=== PATIENT | male | born 1965 | race Caucasian/White ===

== ENCOUNTER 2025-01-05 16:47 | Inpatient (IN) | payer OTHER ==
--- NOTE | 2025-01-05 17:22 | ED ---
Neuro HPI - General Chief Complaint: Neuro Symptoms/Deficit Stated Complaint: Lightheaded/Fever Time Seen by Provider: 01/05/25 17:21 Source: patient, RN notes reviewed, old records reviewed Mode of arrival: ambulatory Limitations: no limitations - History of Present Illness Is the patient presenting with stroke symptoms?: Yes -: week(s) Initial Comments: This is a 59-year-old male to the ER for evaluation. Patient believes he is having a stroke, slurred speech difficulty with speaking and some confusion as well as left-sided weakness but overall weakness both sides of his body. Patient states he has been unable to see a PCP for some time recently was taken off recently stopped taking his blood pressure medication and noticed neurological symptoms about a week ago Location: speech, dysarthria, left arm, left leg, ataxia Place: home Severity: mild Quality: weak, numb, tingling Improves With: none Worsens With: none Context: sudden onset Associated Symptoms: confusion, malaise, weakness Treatments Prior to Arrival: none - Related Data Home Medications: Previous Rx's Medication Instructions Recorded Aspirin 81 mg PO DAILY 30 Days #30 tab 01/07/25 Atorvastatin [Lipitor] 40 mg PO HS 30 Days #30 tab 01/07/25 Clopidogrel [Plavix] 75 mg PO DAILY 90 Days #90 tab 01/07/25 Losartan [Cozaar] 50 mg PO DAILY 30 Days #30 tab 01/07/25 amLODIPine [Norvasc] 10 mg PO DAILY 30 Days #30 tab 01/07/25 atenoloL [Tenormin] 50 mg PO DAILY 30 Days #30 tab 01/07/25 hydrALAZINE HCL [Apresoline] 20 mg PO BID 30 Days #60 tab 01/07/25 hydroCHLOROthiazide [Hydrodiuril] 25 mg PO DAILY 30 Days #30 tab 01/07/25 Allergies/Adverse Reactions: Allergies Allergy/AdvReac Type Severity Reaction Status Date / Time No Known Allergies Allergy Verified 01/05/25 18:00 Review of Systems ROS Statement: Those systems with pertinent positive or pertinent negative responses have been documented in the HPI. ROS Other: All systems not noted in ROS Statement are negative. General Exam Limitations: no limitations General appearance: alert, in no apparent distress Head exam: Present: atraumatic, normocephalic, normal inspection Eye exam: Present: normal appearance, PERRL, EOMI. Absent: scleral icterus, conjunctival injection, periorbital swelling ENT exam: Present: normal exam, mucous membranes moist Neck exam: Present: normal inspection. Absent: tenderness, meningismus, lymphadenopathy Respiratory exam: Present: normal lung sounds bilaterally. Absent: respiratory distress, wheezes, rales, rhonchi, stridor Cardiovascular Exam: Present: regular rate, normal rhythm, normal heart sounds. Absent: systolic murmur, diastolic murmur, rubs, gallop, clicks GI/Abdominal exam: Present: soft, normal bowel sounds. Absent: distended, tenderness, guarding, rebound, rigid Extremities exam: Present: normal inspection, full ROM, normal capillary refill. Absent: tenderness, pedal edema, joint swelling, calf tenderness Back exam: Present: normal inspection Neurological exam: Present: alert, oriented X3, CN II-XII intact Psychiatric exam: Present: normal affect, normal mood Skin exam: Present: warm, dry, intact, normal color. Absent: rash Stroke MDM - Lab Data Result diagrams: 01/07/25 06:09 01/07/25 06:09 Lab Results 01/05/25 01/05/25 01/05/25 Range/Units 17:39 17:39 17:39 WBC 12.71 H (4.50-10.00) 10*3/uL RBC 6.26 H (4.40-5.60) 10*6/uL Hgb 18.3 H (13.0-17.0) g/dL Hct 52.2 H (39.6-50.0) % MCV 83.4 (80.0-97.0) fL MCH 29.2 (27.0-32.0) pg MCHC 35.1 (32.0-37.0) g/dL Plt Count 263 (140-440) 10*3/uL MPV 10.7 (9.5-12.2) fL Immature Gran % (Auto) 0.2 % Neutrophils % 70.7 % Lymphocytes % 20.1 % Monocytes % 7.1 % Eosinophils % 1.2 % Basophils % 0.7 % Immature Gran # 0.03 (0.00-0.04) 10*3/uL Neutrophils # 8.98 H (1.80-7.70) 10*3/uL Lymphocytes # 2.56 (0.90-5.00) 10*3/uL Monocytes # 0.90 (0.20-1.00) 10*3/uL Eosinophils # 0.15 (0.04-0.35) 10*3/uL Basophils # 0.09 (0.00-0.10) 10*3/uL PT 10.7 (10.0-12.5) sec INR 1.0 (<1.2) APTT 22.9 (22.0-30.0) sec Sodium (137-145) mmol/L Potassium (3.5-5.1) mmol/L Chloride (98-107) mmol/L Carbon Dioxide (22-30) mmol/L Anion Gap mmol/L BUN (9-20) mg/dL Creatinine (0.66-1.25) mg/dL Est GFR (CKD-EPI)AfAm (>60 ml/min/1.73 sqM) Est GFR (CKD-EPI)NonAf (>60 ml/min/1.73 sqM) Glucose (74-99) mg/dL Estimated Ave Glu mg/dL mg/dL Hemoglobin A1c (<=6.0) % Calcium (8.4-10.2) mg/dL Phosphorus (2.5-4.5) mg/dL Magnesium (1.6-2.3) mg/dL Total Bilirubin (0.2-1.3) mg/dL AST (17-59) U/L ALT (4-49) U/L Alkaline Phosphatase (38-126) U/L Creatine Kinase (55-170) U/L Troponin I <0.012 (0.000-0.034) ng/mL Total Protein (6.3-8.2) g/dL Albumin (3.5-5.0) g/dL Triglycerides (0.00-149.00) mg/dL Cholesterol (0.00-200.00) mg/dL LDL Cholesterol, Calc (0.0-131.0) mg/dL VLDL Cholesterol, Calc (5.00-40.00) mg/dL HDL Cholesterol (40.00-60.00) mg/dL Cholesterol/HDL Ratio Ratio 01/05/25 01/05/25 01/05/25 Range/Units 17:39 18:59 18:59 WBC (4.50-10.00) 10*3/uL RBC (4.40-5.60) 10*6/uL Hgb (13.0-17.0) g/dL Hct (39.6-50.0) % MCV (80.0-97.0) fL MCH (27.0-32.0) pg MCHC (32.0-37.0) g/dL Plt Count (140-440) 10*3/uL MPV (9.5-12.2) fL Immature Gran % (Auto) % Neutrophils % % Lymphocytes % % Monocytes % % Eosinophils % % Basophils % % Immature Gran # (0.00-0.04) 10*3/uL Neutrophils # (1.80-7.70) 10*3/uL Lymphocytes # (0.90-5.00) 10*3/uL Monocytes # (0.20-1.00) 10*3/uL Eosinophils # (0.04-0.35) 10*3/uL Basophils # (0.00-0.10) 10*3/uL PT (10.0-12.5) sec INR (<1.2) APTT (22.0-30.0) sec Sodium 137 (137-145) mmol/L Potassium 3.8 (3.5-5.1) mmol/L Chloride 105 (98-107) mmol/L Carbon Dioxide 20 L (22-30) mmol/L Anion Gap 12 mmol/L BUN 26 H (9-20) mg/dL Creatinine 1.10 (0.66-1.25) mg/dL Est GFR (CKD-EPI)AfAm 85 (>60 ml/min/1.73 sqM) Est GFR (CKD-EPI)NonAf 74 (>60 ml/min/1.73 sqM) Glucose 88 (74-99) mg/dL Estimated Ave Glu mg/dL 120 mg/dL Hemoglobin A1c 5.8 (<=6.0) % Calcium 10.0 (8.4-10.2) mg/dL Phosphorus 3.8 (2.5-4.5) mg/dL Magnesium 1.6 (1.6-2.3) mg/dL Total Bilirubin 0.8 (0.2-1.3) mg/dL AST 24 (17-59) U/L ALT 31 (4-49) U/L Alkaline Phosphatase 61 (38-126) U/L Creatine Kinase 60 (55-170) U/L Troponin I (0.000-0.034) ng/mL Total Protein 6.6 (6.3-8.2) g/dL Albumin 4.1 (3.5-5.0) g/dL Triglycerides 121.00 (0.00-149.00) mg/dL Cholesterol 125.00 (0.00-200.00) mg/dL LDL Cholesterol, Calc 62.0 (0.0-131.0) mg/dL VLDL Cholesterol, Calc 24.20 (5.00-40.00) mg/dL HDL Cholesterol 38.80 L (40.00-60.00) mg/dL Cholesterol/HDL Ratio 3.22 Ratio - NIH Stroke Scale 1a. Level of Consciousness: (0) alert 1b. LOC Questions: (0) answers correctly 1c. LOC Commands: (0) performs tasks correctly 2. Best Gaze: (0) normal 3. Visual: (0) no visual loss 5a. Motor Arm Left: (1) drift 5b. Motor Arm Right: (0) no drift 6a. Motor Leg Left: (1) drift 6b. Motor Leg Right: (0) no drift 7. Limb Ataxia: (0) absent 8. Sensory: (0) normal 9. Best Language: (1) mild/moderate aphasia 10. Dysarthria: (1) mild/moderate dysarthria 11. Extinction/Inattention: (0) no abnormality - Thrombolytic Inclusion/Exclusion Thrombolytic Exclusion Criteria: Symptom Onset > 4.5 Hours - Medical Decision Making 59 male with strokelike symptoms going on for about a week. He has been off his blood pressure medications at home secondary to change in primary care. Patient will be admitted for acute CVA neurology evaluation blood pressure control - Radiology Data Radiology results: report reviewed (CT brain CT angio positive acute CVA), image reviewed - EKG Data -: EKG Interpreted by Me Past Medical History Past Medical History: Hypertension History of Any Multi-Drug Resistant Organisms: None Reported Past Surgical History: No Surgical Hx Reported Past Psychological History: No Psychological Hx Reported Smoking Status: Current every day smoker Past Alcohol Use History: None Reported Past Drug Use History: Marijuana Course Vital Signs 01/05/25 01/05/25 01/05/25 16:57 18:00 19:00 Temperature 98.0 F Pulse Rate 58 L 60 89 Respiratory 18 18 18 Rate Blood Pressure 180/118 148/92 146/87 O2 Sat by Pulse 97 97 98 Oximetry 01/05/25 20:13 Temperature Pulse Rate 60 Respiratory 18 Rate Blood Pressure 150/88 O2 Sat by Pulse 98 Oximetry - Reevaluation(s) Reevaluation #1: 01/05/25 19:41 Medical records reviewed Reevaluation #2: 01/05/25 19:41 No change in symptoms here in the ER 01/05/25 19:41 Blood pressure is improved Reevaluation #3: 01/05/25 19:41 Patient informed of results and questions answered Reevaluation #4: Was pt. sent in by a medical professional or institution (, RORY, TRANSPORTATION ENGINEER, urgent care, hospital, or long term...) When possible be specific @ -no Did you speak to anyone other than the patient for history (EMS, parent, family, police, friend...)? What history was obtained from this source @ -no Did you review nursing and triage notes (agree or disagree)? Why? @ -agree Are old charts reviewed (outside hosp., previous admission, EMS record, old EKG, old radiological studies, urgent care reports/EKG's, long term records)? Report findings @ -yes Differential Diagnosis (chest pain, altered mental status, abdominal pain women, abdominal pain men, vaginal bleeding, weakness, fever, dyspnea, syncope, headache, dizziness, GI bleed, back pain, seizure, CVA, palpatations, mental hea lth, musculoskeletal)? @ -prior EKG interpreted by me (3pts min.). @ -yes X-rays interpreted by me (1pt min.). @ -no CT interpreted by me (1pt min.). @ -yes negative for acute disease U/S interpreted by me (1pt. min.). @ -no What testing was considered but not performed or refused? (CT, X-rays, U/S, labs)? Why? @ -none What meds were considered but not given or refused? Why? @ -none Did you discuss the management of the patient with other professionals (professionals i.e. RORY Esquivel, TRANSPORTATION ENGINEER, lab, RT, psych nurse, social media intern, legal aide, teacher, contracts officer, sample case porter)? Give summary @ -no Was smoking cessation discussed for >3mins.? @ -no Was critical care preformed (if so, how long)? @ -yes31 Were there social determinants of health that impacted care today? How? (Homelessness, low income, unemployed, alcoholism, drug addiction, transportation, low edu. Level, literacy, decrease access to med. care, halfway, rehab)? @ -none Was there de-escalation of care discussed even if they declined (Discuss DNR or withdrawal of care, Hospice)? DNR status @ -no What co-morbidities impacted this encounter? (DM, HTN, Smoking, COPD, CAD, Cancer, CVA, ARF, Chemo, Hep., AIDS, mental health diagnosis, sleep apnea, morbid obesity)? @ -none Was patient admitted / discharged? Hospital course, mention meds given and route, prescriptions, significant lab abnormalities, going to OR and other pertinent info. @ - 59 male with strokelike symptoms going on for about a week. He has been off his blood pressure medications at home secondary to change in primary care. Patient will be admitted for acute CVA neurology evaluation blood pressure control Admitted Undiagnosed new problem with uncertain prognosis? @ -no Drug Therapy requiring intensive monitoring for toxicity (Heparin, Nitro, In sulin, Cardizem)? @ -no Were any procedures done? @ -no Diagnosis/symptom? @ -CVA Acute, or Chronic, or Acute on Chronic? @ -Acute Uncomplicated (without systemic symptoms) or Complicated (systemic symptoms)? @ -Complicated Side effects of treatment? @ -no Exacerbation, Progression, or Severe Exacerbation? @ -exacerbation Poses a threat to life or bodily function? How? (Chest pain, [place], [place], pneumonia, PE, COPD, DKA, ARF, appy, cholecystitis, CVA, Diverticulitis, Homicidal, Suicidal, threat to staff... and all critical care pts) @ -y with acute CVA Reevaluation #5: Differential CVA Ischemic stroke, hemorrhagic stroke, brain tumor, atypical migraine, Wernicke's encephalopathy, seizure, multiple sclerosis, meningitis, encephalitis, hypoglycemia, Guillain-Whelan, electrolytes disturbance, myasthenia gravis.... This is not meant to be an all-inclusive list - Consultations Consultation #1: Spoke with sound who agrees to admit this patient Disposition Clinical Impression: Cerebrovascular accident (CVA), Hypertension Disposition: ADMITTED IP TO THIS HOSP Condition: Stable Is patient prescribed a controlled substance at d/c from ED?: No Time of Disposition: 19:30
[2025-01-05] MEDS: hydrALAZINE HCL 20 MG/ML 1 ML VIAL IVP STA (17:48)
[2025-01-05] MEDS: SODIUM CHLORIDE 0.9% 1,000 ML IV STA (17:50)
[2025-01-05 18:01] LABS: Basophils # (A) 0.09 10*3/uL (0.00-0.10); Basophils % (A) 0.7 %; Eosinophils # (A) 0.15 10*3/uL (0.04-0.35); Eosinophils % (A) 1.2 %; HCT 52.2 % (39.6-50.0); HGB 18.3 g/dL (13.0-17.0); Lymphocytes # (A) 2.56 10*3/uL (0.90-5.00); Lymphocytes % (A) 20.1 %; MCH 29.2 pg (27.0-32.0); MCHC 35.1 g/dL (32.0-37.0); MCV 83.4 fL (80.0-97.0); Monocytes # (A) 0.90 10*3/uL (0.20-1.00); Monocytes % (A) 7.1 %; Neutrophils # (A) 8.98 10*3/uL (1.80-7.70); Neutrophils % (A) 70.7 %; Platelet Count 263 10*3/uL (140-440); RBC 6.26 10*6/uL (4.40-5.60); RDW 12.9 % (11.5-14.5); WBC 12.71 10*3/uL (4.50-10.00)
[2025-01-05 18:09] LABS: INR 1.0 (<1.2); Partial Thromboplastin Time 22.9 sec (22.0-30.0); Prothrombin Time 10.7 sec (10.0-12.5)
[2025-01-05 19:23] LABS: ALT 31 U/L (4-49); AST 24 U/L (17-59); African American GFR (CKD) 85 (>60 ml/min/1.73 sqM); Albumin 4.1 g/dL (3.5-5.0); Alkaline Phosphatase 61 U/L (38-126); Anion Gap 12 mmol/L; Blood Urea Nitrogen 26 mg/dL (9-20); Calcium 10.0 mg/dL (8.4-10.2); Carbon Dioxide 20 mmol/L (22-30); Chloride 105 mmol/L (98-107); Creatine Kinase 60 U/L (55-170); Glucose 88 mg/dL (74-99); Magnesium 1.6 mg/dL (1.6-2.3); Non-African American GFR(CKD) 74 (>60 ml/min/1.73 sqM); Potassium 3.8 mmol/L (3.5-5.1); Sodium 137 mmol/L (137-145); Total Protein 6.6 g/dL (6.3-8.2)
--- NOTE | 2025-01-05 19:33 | CT ---
EXAMINATION TYPE: CT brain wo con CT DLP: 1159 mGycm, Automated exposure control for dose reduction was used. DATE OF EXAM: 01/05/2025 7:29 PM COMPARISON: None. CLINICAL INDICATION:Male, 59 years old with history of Neuro deficit, acute, stroke suspected, Pt c/o left sided weakness, dizziness, and slurred speech X1 week, high blood pressure today, isn't taking meds TECHNIQUE: Brain: Multiple axial CT images of the brain were obtained without IV contrast. . Coronal and sagitta l reformats reviewed. FINDINGS: Brain: Extra-axial spaces: No abnormal extra-axial fluid collections. Ventricular system: Within normal limits Cerebral parenchyma: No acute intraparenchymal hemorrhage or mass effect. The sorensen-white junction is well differentiated. Region of hypodensity within the right ortiz radiata. Cerebellum: Unremarkable. Mass effect: No evidence of midline shift. Intracranial vasculature: Atherosclerotic calcifications of the intracranial vessels. Soft tissues: Normal. Calvarium/osseous structures: No depressed skull fracture. Paranasal sinuses and mastoid air cells: Clear Visualized orbits: Orbital contents are intact. IMPRESSION: Subacute appearing right ortiz radiata ischemic injury. No acute intracranial hemorrhage. Findings communicated to Dr. Sundeep Hwang on 01/05/2025 7:[address] Fercho Corrales . [facility], , 01/05/2025 7:30 PM
--- NOTE | 2025-01-05 19:38 | CT ---
EXAMINATION TYPE: CT angio head neck CT DLP: 884 mGycm, Automated exposure control for dose reduction was used. DATE OF EXAM: 01/05/2025 7:30 PM COMPARISON: CT brain of the same date. CLINICAL INDICATION:Male, 59 years old with history of Neuro deficit, acute, stroke suspected; PHH, P t c/o left sided weakness, dizziness, and slurred speech X1 week, high blood pressure today, isn't ta anitha meds TECHNIQUE: Axially acquired helical CT angiogram of the head and neck was obtained with contrast util izing 75 cc of Isovue-370 administered intravenously. Axial images are supplemented with 3D reconstru ctions which were post-processed at an independent workstation. NASCET criteria used. MIP imaging performed on a separate workstation and submitted for review. FINDINGS: CTA HEAD: No evidence of acute intracranial hemorrhage, mass effect, or midline shift. The ventricles, sulci, a nd cisterns are unremarkable. The visualized portions of the internal carotid arteries, middle cerebral arteries, anterior cerebral arteries, and posterior cerebral arteries are patent. The basilar and vertebral arteries are patent. CTA NECK: Right Carotid System: The common carotid artery and external carotid artery are patent. The carotid bifurcation demonstrate s no evidence of hemodynamically significant stenosis. The remaining portions of the internal carotid artery demonstrate normal size without significant narrowing. Left Carotid System: The common carotid artery and external carotid artery are patent. The carotid bifurcation demonstrate s no evidence of hemodynamically significant stenosis. The remaining portions of the internal carotid artery demonstrate normal size without significant narrowing. Vertebral arteries are patent without evidence hemodynamically significant stenosis. There is a four-vessel aortic arch. The origins of the great vessels are patent. No evidence of hemod ynamically significant stenosis. IMPRESSION: 1. No evidence of dissection of the cervical internal carotid arteries or vertebral arteries or any e vidence of significant stenosis at the carotid bifurcations. 2. No evidence of high-grade stenosis or intracranial aneurysm. [facility], , 01/05/2025 7:36 PM
[2025-01-05] MEDS: ASPIRIN 325 MG TAB PO STA (19:53)
[2025-01-05] MEDS: SODIUM CHLORIDE 0.9% 1,000 ML IV SCH (19:55)
[2025-01-05] MEDS: ATORVASTATIN 80 MG TAB PO SCH (20:12)
--- NOTE | 2025-01-05 20:28 | P.HPIM ---
History of Present Illness H&P Date: 01/05/25 Chief Complaint: Neurological symptoms Patient is a 59-year-old male with a PMH of hypertension. Patient stated that he had weakness in his left arm that started on 01/01/2025, as he felt sick. He did not notice weakness in his lower extremities. Patient noticed the weakness when he lifted 2 exact weights simultaneously his left arm gave up but he had full strength on the right arm. He did not fall or lose balance at that time, he denied head injury. Patient stated that he had diarrhea on that day with watery nonbloody stool x3. He denied having fever at that time. His head CT was negative for intracranial hemorrhage, and angio CT was negative for stenosis in carotid arteries. Patient denied having numbness or tingling, slurred speech, difficulty talking, change in vision. Patient described his symptoms as having cloudiness in his head as he noticed recent difficulty spelling some words, and with typing. Patient denied having a similar episode in the past. However, patient has a history of hypertension, but he lost followed up with his PCP was a year ago. He denied taking his blood pressure meds since he lost saw his PCP. When he came to the ED, his blood pressure was 185/118 and after IVP hydralazine his systolic BP went down to 140. He was also started on ASA 324 mg and Atorvastatin 80 mg. At the time of examination, systolic BP was 199 and on repeat 178/100. Denied smoking Hx, or history of diabetes. Patient stated having intermittent headaches, denied having chest pain, abdominal pain, shortness of breath, weakness, numbness or tingling, fever and chills. Imaging: Brain CT 01/05 Subacute appearing right ortiz radiata ischemic injury. No acute intracranial hemorrhage. Angiography CT 01/05 1. No evidence of dissection of cervical internal carotid arteries or vertebral arteries or any evidence of significant stenosis at the carotid bifurcations 2. No evidence of high-grade stenosis or intracranial aneurysm Labs WBC 12.71, Hgb 18.3, HCT 52.2, plt count 263 Na 137, K 3.8, Cl 105, CO2 20, BUN 26, Cr 1.1 Vitals T 90.8F, HR 58, RR 18, BP 180/118, O2 sat 97% on RA ED documentation reviewed. Review of systems: Pertinent positives and negatives as discussed in HPI, a complete review of systems was performed and all other systems are negative. Physical examination: Vital signs reviewed General: non toxic, no distress, appears at stated age Derm: no unusual rashes/lesions, warm Head: atraumatic, normocephalic, face symmetric Eyes: EOMI, anicteric sclera, pupils equal round reactive to light, no loss of visual coreas ENT: Nose and ears atraumatic Neck: supple Mouth: no lip lesion Cardiovascular: S1S2 reg, no murmur, positive dorsalis pedis pulse bilateral, no edema Lungs: normal breathing effort, no rhonchi, no rales, no accessory muscle use Abdominal: soft, nontender to palpation, no guarding Ext: muscle strength 5 out of 5 in all 4 extremities grossly, no gross muscle atrophy Neuro: stable gait, no sensory or motor deficits Psych: Alert, oriented to person, place, and time Assessment/Plan: #. Hypertensive emergency with subacute stroke - Keep blood pressure lower than 180/110 - begin amlodipine 5 mg daily, and Losartan 25 mg daily - Keep on aspirin 81 mg and atorvastatin 80 mg - NIH score 4 - start Clopidogrel 75 mg for 21 days - Regular neuro checks - Consult neurology for further evaluation - check HbA1c and Lipid panel - order an Echo with bubble study #. Leukocytosis - WBC 12 - likely reactive due to subacute stroke - Trend DVT prophylaxis: Lovenox 40 mg The patient is admitted with an anticipated less than 2 midnight stay for evaluation of neurological symptoms CODE STATUS: No Code Discussed with: Dr. Jones Anticipated discharge place: Home Charlotte Estes MD PGY-1 IM Dictation was produced using FID[employer] dictation software. please excuse any grammatical, word or spelling errors. I have seen and evaluated the patient today. I Discussed the case with the resident and agree with the resident's H&P and exam 59 year old male with hypertension , non compliant coming in with stroke like symptoms of 3 days duration A/P CVA ischemic Brain CT 01/05 Subacute appearing right ortiz radiata ischemic injury. No acute intracranial hemorrhage. Angiography CT 01/05 1. No evidence of dissection of cervical internal carotid arteries or vertebral arteries or any evidence of significant stenosis at the carotid bifurcations 2. No evidence of high-grade stenosis or intracranial aneurysm no tpa , out of the window ASA, statin start plavix for 21 days , low NIH score of 4 Neuro consult neuro checks echo bubble study check lipid panel , a1c PT/OT /speech eval hypertension , uncontrolled start amlodipine 5 mg po daily start losartan 25 mg po daily monitor vitals dvt ppx lovenox 40 mg sc daily full code Past Medical History Past Medical History: Hypertension History of Any Multi-Drug Resistant Organisms: None Reported Past Surgical History: No Surgical Hx Reported Past Psychological History: No Psychological Hx Reported Smoking Status: Current every day smoker Past Alcohol Use History: None Reported Past Drug Use History: Marijuana Medications and Allergies Home Medications Medication Instructions Recorded Confirmed Type atenoloL [Tenormin] 50 mg PO DAILY 01/05/25 01/05/25 History hydroCHLOROthiazide [Hydrodiuril] 25 mg PO DAILY 01/05/25 01/05/25 History Allergies Allergy/AdvReac Type Severity Reaction Status Date / Time No Known Allergies Allergy Verified 01/05/25 18:00 Physical Exam Vitals: Vital Signs Temp Pulse Resp BP Pulse Ox 01/05/25 20:13 60 18 150/88 98 01/05/25 19:00 89 18 146/87 98 01/05/25 18:00 60 18 148/92 97 01/05/25 16:57 98.0 F 58 L 18 180/118 97 Intake and Output 01/05/25 01/05/25 01/05/25 06:59 14:59 22:59 Other: Weight 108.862 kg Results CBC & Chem 7: 01/05/25 17:39 01/05/25 18:59 Labs: Abnormal Lab Results - Last 24 Hours (Table) 01/05/25 01/05/25 Range/Units 17:39 18:59 WBC 12.71 H (4.50-10.00) 10*3/uL RBC 6.26 H (4.40-5.60) 10*6/uL Hgb 18.3 H (13.0-17.0) g/dL Hct 52.2 H (39.6-50.0) % Neutrophils # 8.98 H (1.80-7.70) 10*3/uL Carbon Dioxide 20 L (22-30) mmol/L BUN 26 H (9-20) mg/dL
[2025-01-05] MEDS: LABETALOL 5 MG/ML VIAL MDV IVP STA (21:37)
[2025-01-06 01:07] LABS: Bilirubin,Urine Negative (Negative); Blood,Urine Negative (Negative); Color,Urine Colorless; Glucose,Urine (UA) Negative (Negative); Ketones,Urine Negative (Negative); Leukocyte Esterase,Urine Negative (Negative); Nitrite,Urine Negative (Negative); PH, Urine 5.5 (5.0-8.0); Protein,Urine Negative (Negative); Urobilinogen,Urine <2.0 mg/dL (<2.0)
[2025-01-06 01:23] LABS: Specific Gravity,Urine >1.050 (1.001-1.035)
[2025-01-06] MEDS: ENOXAPARIN 40 MG/0.4 ML SYRINGE SQ STA (03:20)
[2025-01-06 08:17] LABS: Cholesterol 125.00 mg/dL (0.00-200.00); HDL Cholesterol 38.80 mg/dL (40.00-60.00); LDL Cholesterol,Calculated 62.0 mg/dL (0.0-131.0); Triglycerides 121.00 mg/dL (0.00-149.00); VLDL Calculation 24.20 mg/dL (5.00-40.00)
[2025-01-06] MEDS ORDERED: ASPIRIN 325 MG TAB PO SCH (09:00)
[2025-01-06] MEDS: ASPIRIN 81 MG PO SCH (09:14)
[2025-01-06] MEDS: amLODIPine 5 MG TAB PO SCH (09:14)
[2025-01-06] MEDS: CLOPIDOGREL 75 MG TAB PO SCH (09:14)
[2025-01-06] MEDS: LOSARTAN 25 MG TAB PO SCH (09:14)
[2025-01-06] MEDS: ENOXAPARIN 40 MG/0.4 ML SYRINGE SQ SCH (09:15)
[2025-01-06 11:23] LABS: HCT 48.9 % (39.6-50.0); HGB 17.0 g/dL (13.0-17.0); MCH 29.5 pg (27.0-32.0); MCHC 34.8 g/dL (32.0-37.0); MCV 84.9 fL (80.0-97.0); Platelet Count 228 10*3/uL (140-440); RBC 5.76 10*6/uL (4.40-5.60); RDW 12.7 % (11.5-14.5); WBC 10.01 10*3/uL (4.50-10.00)
[2025-01-06] MEDS: LOSARTAN 25 MG TAB PO STA (11:36)
[2025-01-06] MEDS: amLODIPine 5 MG TAB PO STA (11:36)
[2025-01-06 11:45] LABS: African American GFR (CKD) 87 (>60 ml/min/1.73 sqM); Anion Gap 10 mmol/L; Blood Urea Nitrogen 23 mg/dL (9-20); Calcium 9.8 mg/dL (8.4-10.2); Carbon Dioxide 22 mmol/L (22-30); Chloride 105 mmol/L (98-107); Glucose 123 mg/dL (74-99); Magnesium 1.7 mg/dL (1.6-2.3); Non-African American GFR(CKD) 75 (>60 ml/min/1.73 sqM); Potassium 3.8 mmol/L (3.5-5.1); Sodium 137 mmol/L (137-145)
--- NOTE | 2025-01-06 12:37 | P.PN ---
Subjective Progress Note Date: 01/06/25 Hospital course: Patient is a pleasant 59-year-old male with a past medical history of hyperten brandon and daily cannabis use. He presented to the hospital on 01/05/2025 secondary to reports of left upper extremity weakness accompanied by feelings of general illness with watery diarrhea and intermittent headaches/fogginess. Pt reports these syptoms began last (01/01/25). Upon arrival to our facility, patient underwent evaluation in the emergency department. Vital signs upon arrival show blood pressure 180/118, heart rate 58, respiratory rate 18, temp 98.0 F, and SpO2 of 97% on room air. Blood pressure elevated as high as 199/112. EKG was completed showing sinus bradycardia at 59 bpm with left ventricular hypertrophy and nonspecific T wave/ST abnormalities in inferior leads. CT brain without contrast was completed showing subacute appearing right ortiz radiata ischemic injury but negative for acute intercranial hemorrhage. CTA head and neck also completed showing no evidence of acute intercranial hemorrhage, mass effect, or midline shift showing ventricles sulci and cisterns unremarkable and patent bilateral carotid bifurcation showing no evidence of hemodynamically significant stenosis. Labs were completed and reviewed. CBC showing leukocytosis with WBC count of 12.71 and polycythemia with elevated hemoglobin of 18.3 and hematocrit of 52.2. Coagulation profile normal findings. BMP showing high anion gap metabolic acidosis with chloride of 105, bicarb of 20 and anion gap of 12 and prerenal azotemia with BUN of 26. Blood glucose was 88. Magnesium 1.6. Liver profile unremarkable. Troponin was negative at less than 0.012. Patient admitted under our services with consultation to neurology. Hemoglobin A1c 5.8%. Lipid profile unremarkable with exception of low HDL of 38.80. CRP was elevated at 1.2. Physical exam: Patient seen and evaluated at bedside this morning. He reports the left upper extremity weakness has significantly improved since and only notices a slight difference. He reports the fogginess that he has been experiencing remains unchanged. Patient denies having a headache, lightheadedness or dizziness, chest pain or palpitations, shortness of breath, cough or congestion, dysphagia, difficulty with or changes in speech, hearing, or vision, and denies any focal numbness or tingling in his extremities. Vital signs reviewed and stable. General: Nontoxic, no distress and appears stated age. Derm: Skin warm and dry, normal coloration for ethnicity. Head: Atraumatic, normocephalic and symmetric. Eyes: EOM's intact, no lid lag, and anicteric sclera Mouth: no lip lesions, mucus membranes moist Cardiovascular: regular rate and rhythm with normal S1S2, no murmur, positive posterior tibial pulses bilaterally, and cap refill < 2 seconds. Lungs: Respirations even, regular, and unlabored on room air. Lungs CTA bilaterally, no rhonchi, no rales, no wheezing, and no accessory muscle usage. Abdominal: soft, nontender to palpation, no guarding, no appreciable organomegaly Ext: No gross muscle atrophy, no edema, no contractures. Movement and sensation intact. Strength equal, symmetrical, and strong in bilateral upper and lower extremities. Neuro: Speech clear, face symmetrical and CN II-XII grossly intact with no noted focal neuro deficits Psych: Alert and oriented to person, place, time, and situation. Appropriate and pleasant affect. Assessment and Plan of Care: Subacute stroke Hypertensive urgency Leukocytosis, likely reactive secondary to above Polycythemia, likely secondary to hemoconcentration and resolved after gentle IV fluid hydration -Consult to neurology, appreciate recommendations -Hemoglobin A1c 5.8%. Lipid profile unremarkable with exception of low HDL of 38.80. CRP was elevated at 1.2. -NIH stroke scale with neuro checks every 4 hours and as needed -Daily aspirin 81 mg daily, Plavix 75 mg daily, and atorvastatin 80 mg nightly. -Patient continues to have hypertensive urgency and amlodipine increased to 10 mg daily and losartan increased to 50 mg daily. -Echocardiogram completed and currently pending results -PT/OT consult -Consult was placed to speech and language pathologist -Fall precautions and provide pt with assistance as needed Data and imaging reviewed: Vital signs reviewed. Blood pressure elevated at 199/108, heart rate 64, respiratory rate 16, temp 99.1 F, and SpO2 of 98% on room air. Labs reviewed. CBC showing mild leukocytosis with WBC count improving from 12.71 down to 10.01 this morning. Polycythemia also resolved with hemoglobin decreasing from 18.3 down to 17.0 this morning. BMP showing improvement of prerenal azotemia with BUN decreasing to 23. Blood glucose 123. Magnesium slightly low at 1.7. Hemoglobin A1c 5.8%. Lipid profile unremarkable with exception of low HDL of 38.80. CRP was elevated at 1.2. CODE STATUS: Full code DVT prophylaxis: Lovenox Discussed with: Patient, RN, and neurologist Anticipated discharge date: Pending clinical course Anticipated discharge place: Home Patient was seen independently by Nurse Pracitioner. This document was prepared using [employer] dictation software. Please allow for errors in pipe line repairer, while rare they do occur. James Reyez DEER FARM WORKER rendered care for this patient independently, reviewed the findings and plan as documented in the note above and agree with plan. I did n ot physically speak with or examine the patient on this date. Objective - Vital Signs Vital signs: Vital Signs Temp 98.1 F 01/05/25 20:40 Pulse 62 01/06/25 03:27 Resp 18 01/06/25 03:27 BP 165/101 01/06/25 03:27 Pulse Ox 98 01/05/25 20:40 FiO2 Intake & Output 01/05/25 01/06/25 01/06/25 18:59 06:59 18:59 Intake Total 120 Balance 120 Weight 108.862 kg 102.1 kg Intake: Oral 120 Other: Voiding Method Toilet # Voids 2 - Labs CBC & Chem 7: 01/06/25 10:34 01/06/25 10:34 Labs: Abnormal Lab Results - Last 24 Hours (Table) 01/05/25 01/05/25 01/05/25 Range/Units 17:39 18:59 18:59 WBC 12.71 H (4.50-10.00) 10*3/uL RBC 6.26 H (4.40-5.60) 10*6/uL Hgb 18.3 H (13.0-17.0) g/dL Hct 52.2 H (39.6-50.0) % Neutrophils # 8.98 H (1.80-7.70) 10*3/uL Carbon Dioxide 20 L (22-30) mmol/L BUN 26 H (9-20) mg/dL C-Reactive Protein (<1.0) mg/dL HDL Cholesterol 38.80 L (40.00-60.00) mg/dL Ur Specific [place] (1.001-1.035) 01/05/25 01/05/25 Range/Units 21:40 23:55 WBC (4.50-10.00) 10*3/uL RBC (4.40-5.60) 10*6/uL Hgb (13.0-17.0) g/dL Hct (39.6-50.0) % Neutrophils # (1.80-7.70) 10*3/uL Carbon Dioxide (22-30) mmol/L BUN (9-20) mg/dL C-Reactive Protein 1.2 H (<1.0) mg/dL HDL Cholesterol (40.00-60.00) mg/dL Ur Specific [place] >1.050 H (1.001-1.035)
[2025-01-06] MEDS: MAGNESIUM SULFATE-D5W PMX 1 GM in DEXTROSE/WATER 1 100ML.BAG IVPB SCH (13:34)
--- NOTE | 2025-01-06 16:56 | P.CNNES ---
History of Present Illness Consult date: 01/06/25 Requesting physician: Sundeep Hwang Reason for Consult: CVA History of Present Illness: Patient is a 59-year-old right-handed male with history of hypertension, noncompliance with medications, came to the hospital yesterday at 4:47 PM with strokelike symptoms. Patient states that he had a headache on Sunday night, on 12/31/2024. Next morning on , he woke up with a cloudy head and diarrhea. Around 5 PM on , he noticed weakness of the left arm and slurred speech. When he was caring couple heavy boxes in each arm, the left arm felt very weak and not able to carry the weight with his left arm. His speech was also slurred. Denies any weakness in the leg. He still went around his day over the next few days. On Sunday he told his mother for having strokelike symptoms. She told him to go to ER but he declined. He noticed that he was not able to type with his left hand, and his spellings were worse than baseline. He also had left facial droop. He has been more emotional all the time and feels depressed. His balance was fine. Denies any numbness or dizziness. He finally decided to come to the ER on Sunday, which is yesterday afternoon. Vital signs on arrival blood pressure 180/118, which came down to 148/92, pulse rate 58, temperature 98.0. Blood test showed WBC 12.71 hemoglobin 18.3 and normal platelets. PT PTT normal. CMP normal, troponin negative. UA negative. EKG showed sinus bradycardia, CT head showed subacute appearing right ortiz radiata ischemic injury. No acute intracranial hemorrhage. I personally reviewed CT head and agree with the findings. Home medications include atenolol 50 mg and HCTZ 25 mg daily. Patient has history of hypertension diagnosed about 20 years ago. He used to take above medication, but he ran out of his insurance and he stopped taking blood pressure medication. The last refill for atenolol 50 mg was on 10/10/2023 and last refill of HCTZ 25 mg was on 07/03/2023. Even those bottles in his p ossession has many tablets left and it appears he just stopped taking it. He does not take any antiplatelet medication at home. Patient was a light smoker, quit 20 years ago. He used to binge drink alcohol but quit drinking 6 years ago. No previous history of CVA. He smokes marijuana every day. Denies diabetes. No previous history of strokes or TIA. Denies any previous history of transient numbness of the body, optic neuritis, vertigo. Denies any family history of MS. Review of Systems All pertinent positive and negative review of systems mentioned HPI, otherwise unremarkable. Past Medical History Past Medical History: Hypertension History of Any Multi-Drug Resistant Organisms: None Reported Past Surgical History: No Surgical Hx Reported Past Anesthesia/Blood Transfusion Reactions: No Reported Reaction Past Psychological History: No Psychological Hx Reported Smoking Status: Current every day smoker Past Alcohol Use History: None Reported Past Drug Use History: Marijuana Medications and Allergies Home Medications Medication Instructions Recorded Confirmed Type Aspirin 81 mg PO DAILY 30 Days #30 tab 01/07/25 Rx Atorvastatin [Lipitor] 40 mg PO HS 30 Days #30 tab 01/07/25 Rx Clopidogrel [Plavix] 75 mg PO DAILY 90 Days #90 tab 01/07/25 Rx Losartan [Cozaar] 50 mg PO DAILY 30 Days #30 tab 01/07/25 Rx amLODIPine [Norvasc] 10 mg PO DAILY 30 Days #30 tab 01/07/25 Rx atenoloL [Tenormin] 50 mg PO DAILY 30 Days #30 tab 01/07/25 Rx hydrALAZINE HCL [Apresoline] 20 mg PO BID 30 Days #60 tab 01/07/25 Rx hydroCHLOROthiazide [Hydrodiuril] 25 mg PO DAILY 30 Days #30 tab 01/07/25 Rx Allergies Allergy/AdvReac Type Severity Reaction Status Date / Time No Known Allergies Allergy Verified 01/05/25 18:00 Physical Examination - Vital Signs Vital Signs: Vital Signs Temp Pulse Pulse Resp BP BP Pulse Ox 01/06/25 11:20 98.5 F 60 14 174/110 01/06/25 09:11 99.1 F 64 16 199/108 98 01/06/25 03:27 62 18 165/101 01/05/25 23:02 63 18 164/69 01/05/25 22:30 178/99 01/05/25 20:40 98.1 F 62 14 199/112 98 01/05/25 20:13 60 18 150/88 98 01/05/25 19:00 89 18 146/87 98 01/05/25 18:00 60 18 148/92 97 01/05/25 16:57 98.0 F 58 L 18 180/118 97 FiO2 01/06/25 11:20 99 01/06/25 09:11 01/06/25 03:27 01/05/25 23:02 01/05/25 22:30 01/05/25 20:40 01/05/25 20:13 01/05/25 19:00 01/05/25 18:00 01/05/25 16:57 Intake and Output 01/06/25 01/06/25 01/06/25 06:59 14:59 22:59 Intake Total 358 Balance 358 Intake: Oral 358 Other: Voiding Method Toilet Toilet # Voids 2 Weight 102.1 kg Patient is a middle-aged male, in no acute distress. Patient is slightly edgy it appears. Patient is alert awake oriented to time place and person. Speech and language functions are normal. Patient can name and repeat very well. No aphasia, although patient may have mild dysarthria. Attention, concentration and fund of knowledge is adequate. On cranial nerve examination, pupils are equal, round and reacting to light, visual coreas are full on confrontation, with no neglect on double simultaneous stimulation. Extraocular muscles are intact with no nystagmus. Patient has left facial asymmetry and flattening of the nasolabial fold. He has tongue protrudes to the midline. Palatal elevation and sensation normal, hearing and shoulder shrug normal, facial sensation normal. On muscle strength testing, there is no pronator drift and the strength is normal in arms and legs distally and proximally. Deep tendon reflexes are (right/left) biceps 2/2+, brachioradialis 2/2+, knees 2/2, and plantars are probable downgoing bilaterally versus withdrawal. Sensory to touch is equal with no neglect on double simultaneous stimulation. Cerebellar function showed no ataxia for [id number] testing. No dysdiadochokinesia. No ataxia for [id number] testing on either side. Tone and bulk of muscles normal. Gait deferred.. On general examination, there is no carotid bruit or murmur, S1-S2 audible. Chest is clear on consultation. Abdomen is soft nontender. No organomegaly, bowel sounds present. Peripheral pulses are present. No peripheral edema. Results - Laboratory Findings CBC and BMP: 01/07/25 06:09 01/07/25 06:09 Abnormal Lab Findings: Abnormal Labs 01/05/25 01/05/25 01/05/25 17:39 18:59 18:59 WBC 12.71 H RBC 6.26 H Hgb 18.3 H Hct 52.2 H Neutrophils # 8.98 H Carbon Dioxide 20 L BUN 26 H Glucose C-Reactive Protein HDL Cholesterol 38.80 L Ur Specific [place] 01/05/25 01/05/25 01/06/25 21:40 23:55 10:34 WBC 10.01 H RBC 5.76 H Hgb Hct Neutrophils # Carbon Dioxide BUN Glucose C-Reactive Protein 1.2 H HDL Cholesterol Ur Specific [place] >1.050 H 01/06/25 10:34 WBC RBC Hgb Hct Neutrophils # Carbon Dioxide BUN 23 H Glucose 123 H C-Reactive Protein HDL Cholesterol Ur Specific [place] Assessment and Plan Assessment: * Acute to subacute ischemic stroke with slurred speech and left-sided weakness, that seems to have improved significantly. Current NIH stroke scale is 1 related to left facial droop. * Hypertension, uncontrolled * Marijuana use * Medication noncompliance Plan: CT head has clearly revealed subacute ischemic stroke involving the right basal ganglia. Therefore no indication for MRI. 2-D echo with bubble study to rule out PFO CTA head and neck showed: No evidence of dissection of the cervical internal carotid arteries or vertebral arteries or any evidence of significant stenosis at the carotid bifurcations. No evidence of high-grade stenosis or intracranial aneurysm. Fasting a.m. lipid panel cholesterol 125, LDL 62, HDL 38 and triglycerides 121. Patient given loading dose of Lipitor 80 mg. We will decrease dose to 40 mg. Hemoglobin A1c 5.8 Permissive hypertension for next 24-48 hours Patient was not taking any antiplatelet medication at home. Agree with starting dual antiplatelet therapy with aspirin 81 mg and Plavix 75 mg for 30 days, and then stop Plavix and continue aspirin indefinitely.. Neuro checks every 4 hours. Telemetry monitoring rule out any arrhythmia PT, OT, speech therapy DVT prophylaxis: Lovenox 40 mg subcu daily Neurology will continue to follow. Discussed with family members in detail. Thank you for the consult.
[2025-01-06] MEDS: ATORVASTATIN 40 MG TAB PO SCH (20:36)
--- NOTE | 2025-01-06 21:48 | CA ---
Transthoracic Echo Report Name: Marcos Cornejo Age: 59 Gender: M : 1965 Exam Date: 01/06/2025 08:29 Exam Location: [place] [facility] Ht (in): 66 Wt (lb): 240 Ordering Physician: Sundeep Hwang DO Attending/Referring Phys: [id number], Jaiden Aws Software Development Engineer Imelda Wright RDCS Procedure CPT: Indications: Thrombus, Unstable angina Cardiac Hx: Technical Quality: Technically difficult study Contrast 1: Definity Total Dose (mL): 2 Contrast 2: Total Dose (mL): MEASUREMENTS (Male / Female) Normal Values 2D ECHO LV Diastolic Diameter PLAX 4.7 cm 4.2 - 5.9 / 3.9 - 5.3 cm LV Systolic Diameter PLAX 3.1 cm IVS Diastolic Thickness 1.1 cm 0.6 - 1.0 / 0.6 - 0.9 cm LVPW Diastolic Thickness 1.1 cm 0.6 - 1.0 / 0.6 - 0.9 cm LV Relative Wall Thickness 0.5 RV Internal Dim ED PLAX 2.3 cm LVOT Diameter 1.9 cm Aortic Root Diameter 3.6 cm LA Systolic Diameter LX 3.4 cm 3.0 - 4.0 / 2.7 - 3.8 cm LV Diastolic Volume MOD BP 126.9 cm??? 67 - 155 / 56 - 104 cm??? LV Systolic Volume MOD BP 63.9 cm??? 22 - 58 / 19 - 49 cm??? LV Ejection Fraction MOD BP 49.6 % >= 55 % LV Cardiac Index MOD BP 1833.5 cm???/min???m??? LV Diastolic Volume MOD 4C 111.7 cm??? LV Systolic Volume MOD 4C 52.7 cm??? LV Ejection Fraction MOD 4C 52.8 % LV Cardiac Index MOD 4C 1717.6 cm???/min???m??? LV Diastolic Length 4C 9.2 cm LV Systolic Length 4C 8.4 cm LV Diastolic Volume MOD 2C 143.6 cm??? LV Systolic Volume MOD 2C 72.4 cm??? LV Ejection Fraction MOD 2C 49.6 % LV Cardiac Index MOD 2C 2072.7 cm???/min???m??? LV Diastolic Length 2C 9.3 cm LV Systolic Length 2C 7.6 cm LA Volume 61.9 cm??? 18 - 58 / 22 - 52 cm??? LA Volume Index 26.9 cm???/m??? 16 - 28 cm???/m??? DOPPLER MV Area PHT 3.2 cm??? Mitral E Point Velocity 66.5 cm/s Mitral A Point Velocity 69.3 cm/s Mitral E to A Ratio 1.0 MV Deceleration Time 235.6 ms Right Atrial Pressure 20.0 mmHg FINDINGS Left Ventricle Left ventricular ejection fraction is estimated at 50-55 %. Mild concentric left ventricular hypertrophy. Mildly decreased left ventricular ejection fraction. No obvious regional wall motion abnormalities. Left ventricular cavity size normal. Right Ventricle Normal right ventricular size and function. Unable to estimate the right ventricular systolic pressure. Right Atrium Normal right atrial size. Left Atrium Mildly increased left atrial volume. Mitral Valve Structurally normal mitral valve. No mitral stenosis. Trace mitral regurgitation. Aortic Valve Aortic valve not well visualized. No aortic stenosis. No aortic regurgitation. Tricuspid Valve Tricuspid valve not well visualized. No tricuspid stenosis. Trace tricuspid regurgitation. Pulmonic Valve Pulmonic valve not well visualized. No pulmonic stenosis. Trace pulmonic regurgitation. Pericardium No pericardial effusion. Aorta Aortic annulus normal. CONCLUSIONS Technically difficult study. LVEF 55% No obvious regional wall motion abnormality Mild concentric LVH Normal RV size and systolic function No significant valvular dysfunction appreciated Mild left atrial dilatation Previewed by: Dr Austin Gutierrez (Electronically Signed) Final Date: 06 January 2025 21:48
[2025-01-07 07:15] LABS: HCT 50.1 % (39.6-50.0); HGB 17.4 g/dL (13.0-17.0); MCH 29.3 pg (27.0-32.0); MCHC 34.7 g/dL (32.0-37.0); MCV 84.5 fL (80.0-97.0); Platelet Count 222 10*3/uL (140-440); RBC 5.93 10*6/uL (4.40-5.60); RDW 12.5 % (11.5-14.5); WBC 10.47 10*3/uL (4.50-10.00)
[2025-01-07 07:36] LABS: African American GFR (CKD) 84 (>60 ml/min/1.73 sqM); Anion Gap 10 mmol/L; Blood Urea Nitrogen 20 mg/dL (9-20); Calcium 9.3 mg/dL (8.4-10.2); Carbon Dioxide 25 mmol/L (22-30); Chloride 103 mmol/L (98-107); Glucose 102 mg/dL (74-99); Magnesium 1.9 mg/dL (1.6-2.3); Non-African American GFR(CKD) 73 (>60 ml/min/1.73 sqM); Potassium 3.8 mmol/L (3.5-5.1); Sodium 138 mmol/L (137-145)
[2025-01-07 08:16] VITALS: RESP 14
[2025-01-07] MEDS: amLODIPine 10 MG TAB PO SCH (08:18)
[2025-01-07] MEDS: LOSARTAN 50 MG TAB PO SCH (08:18)
[2025-01-07] MEDS: hydroCHLOROthiazide 25 MG TAB PO SCH (10:05)
[2025-01-07 11:13] VITALS: PULSE 58; TEMP 98
[2025-01-07 15:02] VITALS: BP 138/83
--- NOTE | 2025-01-07 15:29 | P.DS ---
Providers Date of admission: 01/05/25 19:40 Expected date of discharge: 01/07/25 Attending physician: Iván Jones MD Consults: 01/05/25 19:39 Consult Physician Routine Consulting Provider: Sadiq Gandhi Consult Reason/Comments: cva Do you want consulting provider notified?: Yes Primary care physician: Physician Nonstaff Hospital Course: Discharge Diagnosis: Subacute ischemic stroke Hypertensive urgency Leukocytosis, likely reactive secondary to above Polycythemia, likely secondary to hemoconcentration and resolved after gentle IV fluid hydration Hospital Course: Patient is a pleasant 59-year-old male with a past medical history of hypertension and daily cannabis use. He presented to the hospital on 01/05/2025 secondary to reports of left upper extremity weakness accompanied by feelings of general illness with watery diarrhea and intermittent headaches/fogginess. Pt reports these syptoms began last (01/01/25). Upon arrival to our facility, patient underwent evaluation in the emergency department. Vital signs upon arrival show blood pressure 180/118, heart rate 58, respiratory rate 18, temp 98.0 F, and SpO2 of 97% on room air. Blood pressure elevated as high as 199/112. EKG was completed showing sinus bradycardia at 59 bpm with left ventricular hypertrophy and nonspecific T wave/ST abnormalities in inferior leads. CT brain without contrast was completed showing subacute appearing right ortiz radiata ischemic injury but negative for acute intercranial hemorrhage. CTA head and neck also completed showing no evidence of acute intercranial hemorrhage, mass effect, or midline shift showing ventricles sulci and cisterns unremarkable and patent bilateral carotid bifurcation showing no evidence of hemodynamically significant stenosis. Labs were completed and reviewed. CBC showing leukocytosis with WBC count of 12.71 and polycythemia with elevated hemoglobin of 18.3 and hematocrit of 52.2. Coagulation profile normal findings. BMP showing high anion gap metabolic acidosis with chloride of 105, bicarb of 20 and anion gap of 12 and prerenal azotemia with BUN of 26. Blood glucose was 88. Magnesium 1.6. Liver profile unremarkable. Troponin was negative at less than 0.012. Patient admitted under our services with consultation to neurology. Hemoglobin A1c 5.8%. Lipid profile unremarkable with exception of low HDL of 38.80. CRP was elevated at 1.2. Echocardiogram completed showing preserved EF of 50 to 55% with no obvious regional wall abnormality and no significant valv ular dysfunction reported. Patient was started on dual antiplatelet therapy with aspirin and Plavix. He was evaluated by neurologist. Patient resume daily medication regimen with hydrochlorothiazide and atenolol and was started on losartan, amlodipine, and hydralazine during hospitalization in attempts at obtaining optimal control of blood pressures. Patient cleared from neurology perspective recommending outpatient follow-up with neurologist and stating patient to continue dual antiplatelet therapy for 30 days and then may discontinue aspirin and continue Plavix 75 mg daily indefinitely. Patient was instructed to monitor his blood pressures closely at home, at least twice daily and document findings and a daily log to bring with him to his follow-up appointment with PCP as additional changes may be needed to this medication regimen. Patient instructed if blood pressures begin to run low, it is important to call his PCP for guidance on which medications to hold at that time. Patient also instructed that over the next few weeks it is recommended to change positions slowly from lying to sitting, sitting before standing, and standing before walking to allow time for his body to adjust to new lower blood pressures. Patient medically optimized for discharge at this time and to follow-up outpatient with PCP in 1 to 2 days and with neurologist in 1 to 2 weeks. Physical exam: Vital signs reviewed and stable. General: Nontoxic, no distress and appears stated age. Derm: Skin warm and dry, normal coloration for ethnicity. Head: Atraumatic, normocephalic and symmetric. Eyes: EOM's intact, no lid lag, and anicteric sclera Mouth: no lip lesions, mucus membranes moist Cardiovascular: regular rate and rhythm with normal S1S2, no murmur, positive posterior tibial pulses bilaterally, and cap refill < 2 seconds. Lungs: Respirations even, regular, and unlabored on room air. Lungs CTA bilaterally, no rhonchi, no rales, no wheezing, and no accessory muscle usage. Abdominal: soft, nontender to palpation, no guarding, no appreciable organomegaly Ext: No gross muscle atrophy, no edema, no contractures. Movement and sensation intact. Strength equal, symmetrical, and strong in bilateral upper and lower extremities. Neuro: Speech clear, face symmetrical and CN II-XII grossly intact with no noted focal neuro deficits Psych: Alert and oriented to person, place, time, and situation. Appropriate and pleasant affect. A total of 38 minutes of time were spent preparing this complex discharge summary. Pt was discharged on 01/07/2025 at 3:25 PM. Patient was seen independently by Nurse Practitioner. This document was prepared using [employer] dictation software. Please allow for errors in lubricating machine tender while rare they do occur. James Reyez NP rendered care for this patient independently, reviewed the findings and plan as documented in the note above. I did not physically speak with or examine the patient on this date. Patient Condition at Discharge: Stable Plan - Discharge Summary Discharge Rx Participant: No New Discharge Prescriptions: New Losartan [Cozaar] 50 mg PO DAILY 30 Days #30 tab Clopidogrel [Plavix] 75 mg PO DAILY 90 Days #90 tab hydrALAZINE HCL [Apresoline] 20 mg PO BID 30 Days #60 tab Aspirin 81 mg PO DAILY 30 Days #30 tab Atorvastatin [Lipitor] 40 mg PO HS 30 Days #30 tab amLODIPine [Norvasc] 10 mg PO DAILY 30 Days #30 tab Continue hydroCHLOROthiazide [Hydrodiuril] 25 mg PO DAILY 30 Days #30 tab atenoloL [Tenormin] 50 mg PO DAILY 30 Days #30 tab Discharge Medication List Aspirin 81 mg PO DAILY 30 Days #30 tab 01/07/25 [Rx] Atorvastatin [Lipitor] 40 mg PO HS 30 Days #30 tab 01/07/25 [Rx] Clopidogrel [Plavix] 75 mg PO DAILY 90 Days #90 tab 01/07/25 [Rx] Losartan [Cozaar] 50 mg PO DAILY 30 Days #30 tab 01/07/25 [Rx] amLODIPine [Norvasc] 10 mg PO DAILY 30 Days #30 tab 01/07/25 [Rx] atenoloL [Tenormin] 50 mg PO DAILY 30 Days #30 tab 01/07/25 [Rx] hydrALAZINE HCL [Apresoline] 20 mg PO BID 30 Days #60 tab 01/07/25 [Rx] hydroCHLOROthiazide [Hydrodiuril] 25 mg PO DAILY 30 Days #30 tab 01/07/25 [Rx] Follow up Appointment(s)/Referral(s): Diego Cross MD [STAFF PHYSICIAN] - 3 Days (Please call office and schedule first available appointment for posthospitalization follow up and continued long-term management of your hypertension.) Maddi Sinclair MD [REFERRING] - 1 Week Patient Instructions/Handouts: Ischemic Stroke (DC), Right Hemispheric Stroke (DC), Hypertensive Crisis (DC) Activity/Diet/Wound Care/Special Instructions: Activity: As tolerated. Take breaks as needed. Diet: Heart healthy and carb consistent diet. Avoid salts, or foods with hidden salts such as canned or boxed foods and frozen dinners. Extra salt makes your heart work harder and traps the fluid in your body for longer. Special Instructions: Take all of your medications as directed and remember to keep all of your doctor's appointments and follow-up as needed. Monitor your blood pressure twice daily at home and document these findings and a daily log to bring with you to your follow-up appointment with PCP as additional changes may be needed as additional changes may be needed to your current medication regimen. Over the next few weeks it is recommended that you change positions slowly from lying to sitting, sitting before standing, and standing before walking to allow time for your body to adjust to your new lower blood pressures. If you notice your blood pressures starting to become low at home, it is important to call your PCP for guidance on which medications to hold. Continue dual antiplatelet therapy with aspirin and Plavix for the next 30 days and then you can stop aspirin but continue Plavix 75 mg daily indefinitely. Thank you for allowing us to participate in your care, it was truly a pleasure having you for our patient!!! Discharge Disposition: HOME SELF-CARE
--- NOTE | 2025-01-07 23:33 | P.PN ---
Subjective Progress Note Date: 01/07/25 Patient was seen for follow-up. Patient offers no complaints. Patient is sitting comfortably in the recliner. Wants to go home. Objective - Vital Signs Vital signs: Vital Signs Temp 98 F 01/07/25 11:12 Pulse 58 L 01/07/25 11:12 Resp 14 01/07/25 11:12 BP 138/83 01/07/25 15:01 Pulse Ox 99 01/07/25 11:12 FiO2 99 01/06/25 11:20 Intake & Output 01/06/25 01/07/25 01/07/25 18:59 06:59 18:59 Intake Total 476 358 Balance 476 358 Weight 101.3 kg Intake: Oral 476 358 Other: Voiding Method Toilet Toilet Toilet # Voids 1 2 2 - Exam On examination patient is alert and awake. Speech and language functions are normal. Cranial nerves reveal normal visual coreas. Face is symmetric. Tongue protrudes at midline. On muscle strength testing, there is very mild left pronation, otherwise normal. Sensory touch is equal with no neglect. - Labs CBC & Chem 7: 01/07/25 06:09 01/07/25 06:09 Labs: Abnormal Lab Results - Last 24 Hours (Table) 01/07/25 01/07/25 Range/Units 06:09 06:09 WBC 10.47 H (4.50-10.00) 10*3/uL RBC 5.93 H (4.40-5.60) 10*6/uL Hgb 17.4 H (13.0-17.0) g/dL Hct 50.1 H (39.6-50.0) % Glucose 102 H (74-99) mg/dL Assessment and Plan Assessment: * Acute to subacute ischemic stroke with slurred speech and left-sided weakness, that seems to have improved significantly. Current NIH stroke scale is 1 related to left facial droop. * Hypertension, uncontrolled * Marijuana use * Medication noncompliance Plan: CT head has clearly revealed subacute ischemic stroke involving the right basal ganglia. Therefore no indication for MRI. 2-D echo revealed LVEF 55%. Mild concentric LVH. No obvious regional wall motion abnormalities. Mildly increased left atrial volume. No significant valvular dysfunction appreciated. CTA head and neck showed: No evidence of dissection of the cervical internal carotid arteries or vertebral arteries or any evidence of significant stenosis at the carotid bifurcations. No evidence of high-grade stenosis or intracranial aneurysm. On my review, there is no enhancement of the stroke area. Fasting a.m. lipid panel cholesterol 125, LDL 62, HDL 38 and triglycerides 121. Patient given loading dose of Lipitor 80 mg. We will decrease dose to 40 mg. Hemoglobin A1c 5.8 Optimize control of blood pressure. Most recent blood pressure 138/83. Patient was not taking any antiplatelet medication at home. Agree with starting dual antiplatelet therapy with aspirin 81 mg and Plavix 75 mg for 30 days, and t hen may stop Plavix and continue aspirin indefinitely.. Telemetry monitoring showing no arrhythmia. PT, OT, speech therapy DVT prophylaxis: Lovenox 40 mg subcu daily Neurologically clear for discharge. Recommend patient follow-up with neurologist outpatient in 1 week.
== END 2025-01-07 17:21 | disposition home or self-care (01) | DRG 65 ==
LOC: EC 16:47 → 3SCARD 19:40
PROVIDERS: ADMIT Internal Medicine; ATTEND Internal Medicine
DX: I63.9 Cerebral infarction, unspecified (principal); E87.20 Acidosis, unspecified; G81.94 Hemiplegia, unspecified affecting left nondominant side; I11.9 Hypertensive heart disease without heart failure; I16.0 Hypertensive urgency; R29.810 Facial weakness; R47.81 Slurred speech; R29.704 NIHSS score 4; D75.1 Secondary polycythemia; Z87.891 Personal history of nicotine dependence; Z91.148 Patient's other noncompliance with medication regimen for other reason
CPT/HCPCS: 36415; 70450; 70496; 70498; 80048; 80053; 80061; 81003; 82550; 83036; 83735; 84100; 84484; 85025; 85027; 85610; 85652; 85730; 86140; 93005; 93306; 96374; 99285